=== PATIENT | female | born 1990 | race Caucasian/White ===

== ENCOUNTER 2018-03-01 03:49 | Emergency (ER) | payer OTHER, MEDICAID ==
[~2018-03-01] VITALS: Ht 165.1 cm; Wt 72.6 kg
[2018-03-01] MEDS ORDERED: CELEXA10 MG PO (03:59)
[2018-03-01] MEDS ORDERED: ANXIETY MED PO (04:02)
[2018-03-01 04:16] LABS: CALCIUM 8.4 mg/dL (8.5-10.1); POTASSIUM 3.1 mmol/L (3.5-5.1)
[2018-03-01 04:21] LABS: ALBUMIN 4.1 g/dL (3.4-5.0); HEMATOCRIT 39.5 % (37.0-47.0); HEMOGLOBIN 13.2 gm/dL (12.0-15.0); MCH 29.5 pg (26.0-34.0); MCHC 33.5 g/dL (28.0-37.0); MCV 88.1 fL (80.0-100.0); MPV 9.5 fl. (7.2-11.1); RBC 4.48 mil/uL (4.20-5.00); RDW-CV 13.5 % (10.5-14.5); TOTAL BILIRUBIN 0.3 mg/dL (<0.1-1.0); WBC 6.4 thou/uL (4.0-11.0)
[2018-03-01 04:25] LABS: URINE BILIRUBIN NEGATIVE (Negative); URINE BLOOD TRACE (Negative); URINE CLARITY CLEAR; URINE COLOR YELLOW; URINE GLUCOSE-RANDOM NEGATIVE (Negative); URINE KETONES NEGATIVE (Negative); URINE LEUKOCYTES NEGATIVE (Negative); URINE NITRITE NEGATIVE (Negative); URINE PROTEIN NEGATIVE (Negative); URINE SPECIFIC GRAVITY <= 1.005 (1.005-1.030); URINE UROBILINOGEN 0.2 E.U./dl (0.2-1.0)
[2018-03-01 04:41] LABS: AMP/METHAMP Negative (Negative); BARBITURATES Negative (Negative); BENZODIAZEPINES Negative (Negative); COCAINE Negative (Negative); METHADONE Negative (Negative); OPIATES Negative (Negative); PCP Negative (Negative); THC Negative (Negative)
[2018-03-01 04:42] LABS: ALCOHOL 75 mg/dL (<10); SALICYLATE < 2.8 mg/dL (2.8-20.0)
[2018-03-01 04:44] LABS: ACETAMINOPHEN < 2 ug/mL (10-30)
[2018-03-01 07:15] VITALS: BP 106/70
== END 2018-03-01 07:15 | disposition home or self-care (01) ==
LOC: M.ERS 03:49
PROVIDERS: Personal Emergency Response Attendant
DX: F10.129 Alcohol abuse with intoxication, unspecified (principal); R45.851 Suicidal ideations

== ENCOUNTER 2020-10-22 17:05 | Emergency (ER) | payer OTHER ==
[~2020-10-22] VITALS: Ht 165.1 cm; Wt 91.2 kg
[~2020-10-22 17:05] MED LIST: ANXIETY MED PO; CELEXA10 MG PO
[2020-10-22 17:19] VITALS: BP 154/103
[2020-10-22] MEDS ORDERED: PLAQUENIL200 MG PO (17:25)
[2020-10-22] MEDS ORDERED: HYDROXYZINE HCL25 M2 (17:27)
== END 2020-10-22 17:35 | disposition home or self-care (01) ==
LOC: M.ERS 17:05
DX: I10 Essential (primary) hypertension (principal)